=== PATIENT | female | born 1965 | race Caucasian/White ===

== ENCOUNTER 2021-04-09 13:32 | Outpatient (CLI) | payer OTHER, SELFPAY ==
[2021-04-09] MEDS: 0.9% Saline Lock 10 ML Syringe IV (13:58)
[2021-04-09 14:07] VITALS: BP 138/86; PULSE 94; RESP 16; TEMP 36.9; O2SAT 97; BMI 43.5
[2021-04-09 14:30] VITALS: BP 114/77; PULSE 86; RESP 18; TEMP 37.2; O2SAT 97
[2021-04-09 15:26] VITALS: BP 127/78; PULSE 77; RESP 16; TEMP 36.8; O2SAT 98
== END 2021-04-09 23:59 | disposition home or self-care (01) ==
LOC: MS3OUT 13:33 → MS3 13:34
PROVIDERS: Referring Provider Nurse Practitioner Adult Health; Visit Provider Nurse Practitioner Adult Health
DX: Z23 Encounter for immunization (principal); E11.9 Type 2 diabetes mellitus without complications; U07.1 COVID-19
CPT/HCPCS: J7050; M0243; A4216; Q0244